=== PATIENT | male | born 1995 | race Caucasian/White ===

== ENCOUNTER 2024-03-14 09:21 | Emergency (ER) | payer SELFPAY ==
[~2024-03-14] VITALS: Ht 165.1 cm; Wt 75.7 kg
[2024-03-14 09:28] VITALS: BP 119/68; PULSE 66; RESP 18; TEMP 97.3; O2SAT 97
[2024-03-14] MEDS ORDERED: NAPR-337 PO (10:31)
== END 2024-03-14 10:45 | disposition home or self-care (01) ==
LOC: MED 09:21
DX: L02.213 Cutaneous abscess of chest wall (principal); Z79.899 Other long term (current) drug therapy
CPT/HCPCS: 99282